=== PATIENT | male | born 1985 | race Caucasian/White ===

== ENCOUNTER 2017-06-20 20:41 | Emergency (ER) | payer BC ==
[2017-06-20 20:51] VITALS: BP 144/82; PULSE 76; TEMP 98.6; BMI 30.1
[2017-06-20] MEDS ORDERED: BACITRACIN 15 GM TUBE TOPICAL OINTMENT TP ONE (23:29)
[2017-06-20] MEDS ORDERED: TETANUS AND DIPHTHERIA TOXOID 0.5 ML DISP.SYRIN IM ONE (23:30)
[2017-06-20] MEDS ORDERED: CEPHALEXIN MONOHYDRATE 500 MG CAPSULE (UD) PO ONE (23:30)
[2017-06-20] MEDS ORDERED: BACITRACIN 0.9 GM PACKET ONE ×2 (23:30→23:48)
--- NOTE | 2017-06-20 23:41 | PDOC ---
History of Present Illness - General Chief Complaint: Laceration Stated Complaint: LACERATION Time Seen by Provider: 06/20/17 23:21 History Source: Patient Exam Limitations: No Limitations - History of Present Illness Initial Comments: 06/20/17 23:35 31yo Male patient with no significant past medical history presents to ED c/o laceration to left ring finger (palm aspect). Patient states he was opening a can of cat food and left the lid up, when he attempted to grab it, he cut his finger. He denies any other complaints at this time. Tetanus status Unknown. Timing/Duration: reports: just prior to arrival (8 hours ago.) Severity: No: mild, moderate, severe Location: reports: hands (Left). denies: none, extremities, face, feet, genitalia, generalized, other, scalp, torso Respiratory Risk Factors: denies: no cause identified, exposure to illness, exposure to allergen, foods, insect bite, insect sting, medications, pollen, soaps, other Modifying Factors: worse with: antihistamine, calamine lotion, prednisone, scratching, topical steriods, other Associated Symptoms: denies: denies symptoms, blisters, change in skin texture, edema, fever, flushing, headache, hives, jaundice, malaise, nasal congestion, numbness, pallor, paresthesia, petechiae, rash, sore throat, swelling/mass/lumps , tingling, other Past History - Travel Traveled outside of the country in the last 30 days: No Close contact w/someone who was outside of country & ill: No - Past Medical History Allergies/Adverse Reactions: Allergies Allergy/AdvReac Type Severity Reaction Status Date / Time No Known Allergies Allergy Verified 06/20/17 20:49 Home Medications: Ambulatory Orders Hydrocodone/Acetaminophen [Lorcet 5-325 mg Tablet] 1 tab PO Q6H PRN #20 tablet MDD 4 11/09/15 Cephalexin Monohydrate [Keflex -] 500 mg PO BID #20 capsule 06/20/17 Asthma: Yes (Advair 250) - Suicide/Smoking/Psychosocial Hx Smoking Status: No Smoking History: Never smoked Number of Cigarettes Smoked Daily: 0 Hx Alcohol Use: Yes (SOCIAL) Drug/Substance Use Hx: No Substance Use Type: None Review of Systems - Review of Systems Able to Perform ROS?: Yes Is the patient limited E[place] proficient: No Integumentary: Yes: Other (Laceration to left ring finger.) All Other Systems: Reviewed and Negative *Physical Exam - Vital Signs Last Vital Signs Temp Pulse Resp BP Pulse Ox 98.6 F 76 18 144/82 98 06/20/17 20:49 06/20/17 20:49 06/20/17 20:49 06/20/17 20:49 06/20/17 20:49 - Physical Exam General Appearance: Yes: Nourished, Appropriately Dressed. No: Apparent Distress, Mild Distress, Moderate Distress, Severe Distress Neck: positive: Trachea midline, Normal Thyroid. negative: Tender, Rigid, Supple, Carotid bruit, Decreased range of motion, Stridor, Lymphadenopathy (R) Respiratory/Chest: positive: Lungs Clear, Normal Breath Sounds. negative: Chest Tender, Respiratory Distress, Accessory Muscle Use, Labored Respiration, Rapid RR, Decreased Breath Sounds, Rhonchi, Stridor, Wheezing Cardiovascular: positive: Regular Rhythm, Regular Rate Gastrointestinal/Abdominal: positive: Normal Bowel Sounds, Soft. negative: Distended, Guarding, Rebound, Tenderness Musculoskeletal: positive: Normal Inspection. negative: CVA Tenderness Extremity: positive: Normal Capillary Refill, Normal Inspection, Normal Range of Motion, Tender (Left ring finger.). negative: Pedal Edema, Swelling, Calf Tenderness, Erythema, Inflammation Integumentary: positive: Normal Color, Dry, Warm, Other (1 cm laceration - secondary intention healing noted. Wound cleaned with NS, bacitracin ointment applied with bandaid.) Procedures - Laceration/Wound Repair Left 4th digit Wound Length: to 2.5 cm Wound Explored: clean Wound's Depth, Shape: superficial Irrigated w/ Saline: No Betadine Prep: No Amount of Anesthetic (ccs): 0 Wound Debrided: none Number of Sutures: 0 Progress: 06/20/17 23:41 Wound healing by secondary intention. Bacitracin ointment applied with bandaid. *DC/Admit/Observation/Transfer Diagnosis at time of Disposition: Laceration Finger injury Qualifiers: Encounter type: initial encounter Laterality: left Qualified Code(s): S69.92XA - Unspecified injury of left wrist, hand and finger(s), initial encounter; S69.92XA - Unspecified injury of left wrist, hand and finger(s), initial encounter - Discharge Dispostion Disposition: HOME Condition at time of disposition: Stable Admit: No - Prescriptions Prescriptions: Cephalexin Monohydrate [Keflex -] 500 mg PO BID #20 capsule - Patient Instructions Printed Discharge Instructions: DI for Laceration Repair Additional Instructions: Dressing changes daily and as needed. Apply neosporin as needed. Take medications as prescribed. Return if any concerns for further evaluation. Print Language: GERMAN
--- NOTE | 2017-06-20 23:45 | PDOC ---
*Physical Exam - Vital Signs Last Vital Signs Temp Pulse Resp BP Pulse Ox 98.6 F 76 18 144/82 98 06/20/17 20:49 06/20/17 20:49 06/20/17 20:49 06/20/17 20:49 06/20/17 20:49 Medical Decision Making - Medical Decision Making 06/20/17 23:45 agree with care from [facility] Chang *DC/Admit/Observation/Transfer Diagnosis at time of Disposition: Laceration Finger injury Qualifiers: Encounter type: initial encounter Laterality: left Qualified Code(s): S69.92XA - Unspecified injury of left wrist, hand and finger(s), initial encounter - Discharge Dispostion Disposition: HOME Condition at time of disposition: Stable - Prescriptions Prescriptions: Cephalexin Monohydrate [Keflex -] 500 mg PO BID #20 capsule - Referrals Referrals: Ventura Aguiar MD [Primary Care Provider] - - Patient Instructions Printed Discharge Instructions: DI for Laceration Repair Additional Instructions: Dressing changes daily and as needed. Apply neosporin as needed. Take medications as prescribed. Return if any concerns for further evaluation. Print Language: FRISIAN - Post Discharge Activity
[2017-06-20] MEDS ORDERED: CEPHALEXIN MONOHYDRATE 250 MG CAPSULE (FP) ONE (23:48)
== END 2017-06-21 00:01 | disposition home or self-care (01) ==
LOC: JER 20:41 → JERFT 20:41 → JER 06-21 00:01
PROC: 0HQGXZZ Repair Left Hand Skin, External Approach (ICD-10-PCS; principal; 2017-06-20)
DX: S61.215A Laceration without foreign body of left ring finger without damage to nail, initial encounter (principal); W26.8XXA Contact with other sharp object(s), not elsewhere classified, initial encounter; Y93.G1 Activity, food preparation and clean up; Y92.9 Unspecified place or not applicable
CPT/HCPCS: 99281-25

== ENCOUNTER 2021-08-29 21:17 | Emergency (ER) | payer BC ==
[2021-08-29 21:21] VITALS: TEMP 97.6; BMI 34.2
[2021-08-29 22:35] LABS: BASO % 0.5 % (0-2.0); EOS % 7.5 % (0-4.5); HEMOGLOBIN 15.4 GM/dL (11.7-16.9); LYMPH % 28.5 % (8-40); MCH 29.6 pg (25.7-33.7); MCHC 32.9 g/dl (32.0-35.9); MEAN CELL VOLUME 89.9 fl (80-96); MONO % 7.4 % (3.8-10.2); NEUT % 56.1 % (42.8-82.8); PLATELET COUNT 214 10^3/uL (134-434); RBC 5.23 M/mm3 (4.00-5.60); RDW 14.2 % (11.9-15.9); WHITE BLOOD COUNT 7.1 K/mm3 (4.0-10.0)
[2021-08-29 22:55] LABS: CHLORIDE 106 mmol/L (98-107); SODIUM 142 mmol/L (136-145)
[2021-08-29 22:57] LABS: ALBUMIN 3.6 g/dl (3.4-5.0); CALCIUM 9.2 mg/dL (8.5-10.1)
[2021-08-29 22:58] LABS: ANION GAP 6 MMOL/L (8-16); BLOOD UREA NITROGEN 15.4 mg/dL (7-18); CO2 29 mmol/L (21-32); GLUCOSE,RANDOM 118 mg/dL (74-106)
[2021-08-29 23:01] LABS: CREATININE 0.9 mg/dL (0.55-1.3); SGOT/AST 27 U/L (15-37); SGPT/ALT 54 U/L (13-61)
[2021-08-29 23:02] LABS: BILIRUBIN,TOTAL 0.2 mg/dL (0.2-1); TOT PROT 7.6 g/dl (6.4-8.2)
[2021-08-29 23:04] LABS: ALK PHOS 54 U/L (45-117)
[2021-08-29 23:52] VITALS: BP 140/101; PULSE 98
== END 2021-08-30 02:48 | disposition home or self-care (01) ==
LOC: JER 21:17
DX: R07.9 Chest pain, unspecified (principal)
CPT/HCPCS: 36415; 71046-TC-FY; 80053; 82550; 84484; 85025; 93005; 93010; 99285-25